=== PATIENT | female | born 1990 | race African-American/Black ===

== ENCOUNTER 2019-01-18 00:55 | Emergency (ER) | payer OTHER ==
[~2019-01-18] VITALS: Ht 162.6 cm; Wt 115.2 kg
[~2019-01-18 00:55] MED LIST: IRON PO; MACROBID 100 M100 M1 PO; NOHOMEMEDICATIONS; NORCO 5-325 TA1 EACH PO; PHENERGAN 25 MG25 M1 PO; PRENATAL PO; ZOFRAN 4 MG ORAL4 M1 DIS; ZOFRAN ODT4 MG PO; ZOFRAN4 MG PO
[2019-01-18] MEDS ORDERED: NAPROSYN500 MG PO (01:38)
[2019-01-18] MEDS ORDERED: ROBAXIN 750 MG750 MG PO (01:38)
[2019-01-18] MEDS ORDERED: ADVAIR HFA 230M12 GM INH (01:45)
[2019-01-18 02:12] VITALS: BP 159/90
== END 2019-01-18 02:12 | disposition home or self-care (01) ==
LOC: ER 00:55
DX: M79.18 Myalgia, other site (principal); J45.909 Unspecified asthma, uncomplicated; Z86.2 Personal history of diseases of the blood and blood-forming organs and certain disorders involving the immune mechanism; Z88.8 Allergy status to other drugs, medicaments and biological substances; V89.2XXA Person injured in unspecified motor-vehicle accident, traffic, initial encounter; Y93.89 Activity, other specified; Y92.89 Other specified places as the place of occurrence of the external cause; Y99.8 Other external cause status